=== PATIENT | male | born 1965 | race Caucasian/White ===

== ENCOUNTER 2020-06-29 00:15 | Emergency (ER) | payer MEDICARE, OTHER ==
[~2020-06-29] VITALS: Ht 172.7 cm; Wt 77.1 kg
[2020-06-29 00:32] VITALS: BP 142/99
[2020-06-29 03:25] LABS: Amphetamine Screen, Urine POSITIVE (NEGATIVE); Barbiturate Scree,Urine NEGATIVE (NEGATIVE); Benzodiazephine Screen, Urine NEGATIVE (NEGATIVE); Cannabinoid Screen, Urine NEGATIVE (NEGATIVE); Cocaine Screen, Urine NEGATIVE (NEGATIVE); Opiate Scree,Urine NEGATIVE (NEGATIVE); Phencyclidine Screen, Urine NEGATIVE (NEGATIVE)
== END 2020-06-29 03:07 | disposition home or self-care (01) ==
LOC: ER 00:17
DX: B80 Enterobiasis (principal); F45.8 Other somatoform disorders; F10.10 Alcohol abuse, uncomplicated; F15.10 Other stimulant abuse, uncomplicated; Y90.9 Presence of alcohol in blood, level not specified; Z88.6 Allergy status to analgesic agent
CPT/HCPCS: 80307

== ENCOUNTER 2020-07-07 10:05 | Emergency (ER) | payer MEDICARE, OTHER ==
[~2020-07-07] VITALS: Ht 172.7 cm; Wt 79.4 kg
[2020-07-07 11:40] VITALS: BP 158/92
== END 2020-07-07 11:50 | disposition home or self-care (01) ==
LOC: ER 10:05
DX: B86 Scabies (principal); Z88.6 Allergy status to analgesic agent

== ENCOUNTER 2021-02-09 22:18 | Emergency (ER) | payer MEDICARE, OTHER ==
[~2021-02-09] VITALS: Ht 172.7 cm; Wt 81.6 kg
[2021-02-10 01:04] LABS: Urine Bacteria FEW /hpf (None Seen); Urine Blood Negative /uL (Negative); Urine Specific Gravity 1.007 (1.001-1.035); Urine WBC 2 /hpf (0 - 3)
[2021-02-10 01:15] LABS: Alcohol, Urine < 3.0 mg/dL (0-10); Amphetamine Screen, Urine POSITIVE (NEGATIVE); Benzodiazephine Screen, Urine NEGATIVE (NEGATIVE); Cannabinoid Screen, Urine NEGATIVE (NEGATIVE); Cocaine Screen, Urine NEGATIVE (NEGATIVE); Opiate Scree,Urine NEGATIVE (NEGATIVE); Phencyclidine Screen, Urine NEGATIVE (NEGATIVE)
[2021-02-10] MEDS ORDERED: VANCOMYCIN PER PHARMACY 0 MG IV SCH (01:15)
[2021-02-10] MEDS ORDERED: VANCOMYCIN 1,500 MG in D5W 5% 250 ML IV ONE (01:15)
[2021-02-10] MEDS ORDERED: PIPERACILLIN-TAZOB 3.375GM 100 ML IV ONE (01:15)
[2021-02-10 01:17] LABS: Basophils # (auto) 0.1 10 ^3/uL (0-0.2); Basophils % (auto) 0.7 % (0.0-2.0); Eosinophils # (auto) 0.1 10 ^3/uL (0-0.8); Eosinophils % (auto) 0.6 % (0.0-7.0); Hematocrit 41.5 % (41.0-53.0); Hemoglobin 13.9 g/dL (13.5-17.5); Lymphocytes # (auto) 1.7 10 ^3/uL (0.4-5.4); Lymphocytes % (auto) 12.2 % (10.0-50.0); Mean Corpuscular Hemoglobin 27.8 pg (28.0-32.0); Mean Corpuscular Hgb Conc. 33.5 g/dL (32.0-36.0); Monocytes # (auto) 0.7 10 ^3/uL (0-1.3); Neutrophils # (auto) 11.6 10 ^3/uL (1.6-8.6); Neutrophils % (auto) 81.5 % (37.0-80.0); Nucleated Red Blood Cells % 0.3 %; Platelet Count (auto) 434 10^3/uL (140-450); Red Cell Distribution Width 14.1 % (11.8-14.3); White Blood Cell 14.2 10^3/uL (4.4-10.8)
[2021-02-10 01:24] LABS: Barbiturate Scree,Urine NEGATIVE (NEGATIVE)
[2021-02-10 01:27] LABS: Albumin 1.4 g/dL (3.4-5.0); BUN/Creatinine Ratio 16.3
[2021-02-10 01:29] LABS: Lactic Acid w/Reflex 2.3 mmol/L (0.4-2.0)
[2021-02-10 01:39] LABS: Potassium 2.8 mmol/L (3.5-5.1)
[2021-02-10] MEDS ORDERED: VANCOMYCIN 1GM/250ML 250 ML IV ONE (01:45)
[2021-02-10] MEDS ORDERED: POTASSIUM CHL 20MEQ/100ML 100 ML IV ONE (01:45)
[2021-02-10] MEDS ORDERED: POTASSIUM EFFERVESENT TAB 25 MEQ PO ONE (01:45)
[2021-02-10 01:50] LABS: Bilirubin, Total 0.2 mg/dL (0.2-1.0); Total Protein 6.4 g/dL (6.4-8.2)
[2021-02-10 01:55] LABS: Calcium 7.8 mg/dL (8.5-10.1)
[2021-02-10] MEDS ORDERED: SODIUM CHLORIDE 0.9% 2,450 ML IV ONE (04:00)
[2021-02-10] MEDS ORDERED: ONDANSETRON HCL 4 MG/2 ML VIAL IV ONE ×3 (05:15→20:00)
[2021-02-10] MEDS ORDERED: ACETAMINOPHEN 325 MG TAB PO ONE (05:15)
[2021-02-10] MEDS ORDERED: fentaNYL CITRATE 100 MCG/2 ML VL IV ONE ×2 (05:15→06:30)
[2021-02-10] MEDS ORDERED: diazePAM 5 MG TAB PO ONE (06:30)
[2021-02-10] MEDS: VANCOMYCIN 1GM/250ML 250 ML IV SCH ×2 (12:36→22:18)
[2021-02-10] MEDS ORDERED: MORPHINE SULF INJ 2 MG/ML SYRINGE 1ML IV ONE (14:15)
[2021-02-10] MEDS ORDERED: SODIUM CHLORIDE 0.9% 1,000 ML IV ONE (20:00)
[2021-02-10] MEDS ORDERED: HYDROmorphone HCL 2 MG/ML VL IV ONE (20:00)
[2021-02-10] MEDS ORDERED: ENOXAPARIN SOD 30 MG/0.3 ML SYRINGE SC ONE (21:30)
[2021-02-10] MEDS ORDERED: PANTOPRAZOLE 40 MG TAB PO ONE (21:30)
[2021-02-10] MEDS ORDERED: CLINDAMYCIN 600MG IV 50 ML IV ONE (22:45)
[2021-02-11] MEDS ORDERED: ACETAMINOPHEN 500 MG TAB PO ONE (04:45)
[2021-02-11] MEDS ORDERED: HYDROmorphone HCL 2 MG/ML VL IM ONE (05:00)
[2021-02-11] MEDS: VANCOMYCIN 1GM/250ML 250 ML IV SCH (08:24)
[2021-02-11 08:43] LABS: Albumin 1.3 g/dL (3.4-5.0); Calcium 7.9 mg/dL (8.5-10.1); Potassium 3.7 mmol/L (3.5-5.1)
[2021-02-11 08:46] LABS: BUN/Creatinine Ratio 19.6; Bilirubin, Total 0.4 mg/dL (0.2-1.0); Total Protein 6.2 g/dL (6.4-8.2)
[2021-02-11 10:00] VITALS: BP 94/61
== END 2021-02-11 10:05 | disposition short-term general hospital (02) ==
LOC: ER 22:18
DX: A41.9 Sepsis, unspecified organism (principal); L02.415 Cutaneous abscess of right lower limb; E87.6 Hypokalemia; Z20.822 Contact with and (suspected) exposure to COVID-19; Z88.6 Allergy status to analgesic agent
CPT/HCPCS: 36415; 73502; 73700; 80053; 80202; 80307; 81001; 82565; 83605; 85025; 87040; 87077; 87186; 87426; 93971; 96365; 96366; 96367; 96375; 96376; 99285; J1170; J1650; J2270; J2405; J2543; J3010; J3370; J3480; J3490; J7030; J7060